=== PATIENT | female | born 1990 | race American Indian/Alaskan Native ===

== ENCOUNTER 2020-05-01 06:49 | Emergency (ER) | payer MEDICARE ==
[2020-05-01 07:06] VITALS: BP 119/82
[2020-05-01] MEDS ORDERED: IBUPROFEN 800 MG TAB PO ONE (07:11)
[2020-05-01 08:05] LABS: Basophils % (Auto) 0.3 % (0.0-1.8); Eosinophils # (Auto) 0.1 K/mm3 (0.0-0.4); Eosinophils % (Auto) 0.7 % (0.0-4.3); Hemoglobin 12.1 gm/dl (10.1-14.3); Lymphocytes # (Auto) 2.4 K/mm3 (1.2-5.4); Lymphocytes % (Auto) 28.9 % (13.4-35.0); Mean Corpuscular HGB Conc 34 % (30-34); Mean Corpuscular Volume 93 fl (79-97); Monocytes # (Auto) 0.5 K/mm3 (0.0-0.8); Monocytes % (Auto) 6.6 % (0.0-7.3); Platelet Count 236 K/mm3 (140-440); Red Blood Count 3.89 M/mm3 (3.65-5.03); Red Cell Distribution Width 15.8 % (13.2-15.2)
--- NOTE | 2020-05-01 08:11 | Emergency Department Report ---
ED General Adult HPI - General Chief complaint: Seizure Stated complaint: SEIZURE Time Seen by Provider: 05/01/20 07:55 Source: patient Mode of arrival: Ambulatory Limitations: No Limitations - History of Present Illness Initial comments: Patient is 29 years old female with history of pseudoseizure per Patient report. Patient presented to the ER from [facility] stating that she had pseudoseizure today. Patient stated that she is having headache. Patient described her pseudoseizure as spasm and she noticed that her eyes were rolled back and started jerking and she remember all the incident that happened during the seizure. Patient refused to tell why she went for a psych evaluation however she denied any suicidal or homicidal ideation. No visual or auditory hallucination. - Related Data Previous Rx's Medication Instructions Recorded Last Taken Type Naproxen [Naprosyn] 500 mg PO BID #14 tablet 05/01/20 Unknown Rx Allergies Allergy/AdvReac Type Severity Reaction Status Date / Time Benzodiazepines Allergy Unknown Verified 05/01/20 07:00 sumatriptan [From Imitrex] Allergy Shortness Verified 05/01/20 07:00 of Breath propafal Allergy Headache Uncoded 05/01/20 07:00 ED Review of Systems ROS: Stated complaint: SEIZURE Other details as noted in HPI Comment: All other systems reviewed and negative Constitutional: denies: chills, fever Respiratory: denies: cough, shortness of breath, SOB with exertion Cardiovascular: denies: chest pain Gastrointestinal: denies: abdominal pain, nausea, vomiting Neurological: headache. denies: weakness, numbness, paresthesias, confusion ED Past Medical Hx - Past Medical History Previous Medical History?: Yes Hx Psychiatric Treatment: Yes Additional medical history: Pseudo seizures, Taretts syndrome - Surgical History Past Surgical History?: Yes Hx Cholecystectomy: Yes - Social History Smoking Status: Never Smoker Substance Use Type: Alcohol - Medications Home Medications: Home Medications Medication Instructions Recorded Confirmed Last Taken Type Naproxen [Naprosyn] 500 mg PO BID #14 tablet 05/01/20 Unknown Rx ED Physical Exam - General Limitations: No Limitations General appearance: alert, in no apparent distress - Head Head exam: Present: atraumatic, normocephalic, normal inspection - Eye Eye exam: Present: normal appearance, PERRL - ENT ENT exam: Present: normal exam, normal orophraynx, mucous membranes moist - Neck Neck exam: Present: normal inspection, full ROM. Absent: tenderness, meningismus - Respiratory Respiratory exam: Present: normal lung sounds bilaterally - Cardiovascular Cardiovascular Exam: Present: regular rate, normal rhythm, normal heart sounds - GI/Abdominal GI/Abdominal exam: Present: soft, normal bowel sounds. Absent: distended, tenderness, guarding, rebound, rigid - Extremities Exam Extremities exam: Present: normal inspection, full ROM, normal capillary refill. Absent: tenderness - Back Exam Back exam: Present: normal inspection, full ROM. Absent: CVA tenderness (R), CVA tenderness (L) - Neurological Exam Neurological exam: Present: alert, oriented X3, CN II-XII intact, normal gait - Psychiatric Psychiatric exam: Present: normal mood. Absent: agitated, anxious, flat affect, manic, homicidal ideation, suicidal ideation - Skin Skin exam: Present: warm, intact, normal color ED Course Vital Signs 05/01/20 07:03 Temperature 98.6 F Pulse Rate 103 H Respiratory 20 Rate Blood Pressure 119/82 O2 Sat by Pulse 97 Oximetry ED Medical Decision Making - Lab Data Result diagrams: 05/01/20 07:40 05/01/20 10:47 - Radiology Data Radiology results: report reviewed - Medical Decision Making Patient is 29 years old female with history of pseudoseizure per Patient report. Patient presented to the ER from [facility] stating that she had pseudoseizure today. Patient stated that she is having headache. Patient described her pseudoseizure as spasm and she noticed that her eyes were rolled back and started jerking and she remember all the incident that happened during the seizure. Patient refused to tell why she went for a psych evaluation however she denied any suicidal or homicidal ideation. No visual or auditory hallucination. No seizure activity observed in the ER. Labs reviewed and is unremarkable. CT brain is negative for acute finding. Patient received Toradol for headache and stated that she is feeling better. Patient advised to follow-up with her primary doctor in the next 2 to 3 days and to return to the ER if she develop any new symptoms. Critical care attestation.: If time is entered above; I have spent that time in minutes in the direct care of this critically ill patient, excluding procedure time. ED Disposition Clinical Impression: Acute headache, Seizure Disposition: DC-01 TO HOME OR SELFCARE Is pt being admited?: No Condition: Stable Instructions: Epilepsy, [id number], Seizure, Adult, [id number] Prescriptions: Naproxen [Naprosyn] 500 mg PO BID #14 tablet Referrals: VIDHYA STODDARD [Other] - 3-5 Days
[2020-05-01 08:32] LABS: Alanine Aminotransferase 10 units/L (7-56); Albumin 3.7 g/dL (3.9-5); Blood Urea Nitrogen 10 mg/dL (7-17); Hemolysis Index 0
[2020-05-01 08:33] LABS: BUN/Creatinine Ratio 20
--- NOTE | 2020-05-01 08:52 | Cat Scan Report ---
CT HEAD WITHOUT CONTRAST INDICATION: Headache, pseudoseizures. TECHNIQUE: All CT scans at this location are performed using CT dose reduction for ALARA by means of automated e xposure control. COMPARISON: None available. FINDINGS: HEMORRHAGE: None. EXTRA-AXIAL SPACES: Normal in size and morphology for the patient's age. VENTRICULAR SYSTEM: Normal in size and morphology for the patient's age. BRAIN PARENCHYMA: No acute findings. MIDLINE SHIFT OR HERNIATION: None. ORBITS: Normal as visualized. SOFT TISSUES OF HEAD: Normal. CALVARIUM: Normal. VISUALIZED PARANASAL SINUSES AND MASTOID AIR CELLS: Clear. ADDITIONAL FINDINGS: None. IMPRESSION: 1. No acute intracranial abnormality. Signer Name: Sascha Cruz MD Signed: 05/01/2020 8:48 AM Workstation Name: [id number]
[2020-05-01] MEDS ORDERED: KETOROLAC 30 MG/1 ML INJ IM ONE (09:42)
== END 2020-05-01 11:30 | disposition home or self-care (01) ==
LOC: ED 06:49
DX: R56.9 Unspecified convulsions (principal); R51.9 Headache, unspecified; Z90.49 Acquired absence of other specified parts of digestive tract; Z79.899 Other long term (current) drug therapy; Z88.8 Allergy status to other drugs, medicaments and biological substances
CPT/HCPCS: 36415; 70450; 80053; 84132; 84703; 85025; 96372; 99284; J1885